=== PATIENT | male | born 2000 | race Two or more races ===

== ENCOUNTER 2025-01-01 00:56 | Inpatient (IN) | payer BC, SELFPAY ==
[2025-01-01] VITALS (28 sets, daily range): BP systolic 92–141; BP diastolic 46–85; PULSE 63–119; RESP 14–98; TEMP 36.2–37.1; O2SAT 96–100; BMI 23.6
--- NOTE | 2025-01-01 01:24 | XR_ITS ---
Examination: CT cervical spine without contrast 2-D sagittal reconstructions 2-D coronal reconstructions 3-D reconstructions. Exam date and time:January 01, 2025, 0212 hours INDICATIONS: Patient fell today with injury to the neck, neck pain CTDI:vol (mGy) 9.4 DLP: (mGycm) 241 Technique: Multiple 2 mm axial sections of the cervical spine have been obtained. The coronal and sagittal reconstructions have been obtained. 3-D reconstructions have been obtained. Low dose protocols were performed. One or more of the following dose reduction techniques were used; automated exposure control, adjustment of the mA and/or KV according to patient size, use of iterative reconstruction technique. Findings: Axial sections demonstrate intact base of the skull. C1 exhibit satisfactory relationship to the odontoid. No acute cervical vertebral body fracture seen. Alignment posterior spinous processes satisfactory. Impression: No acute cervical fracture.
--- NOTE | 2025-01-01 01:24 | XR_ITS ---
Examination: CT chest, without intravenous contrast. CT abdomen, without intravenous contrast. CT pelvis, without intravenous contrast. 2-D sagittal and coronal reconstructions. 3-D reconstructions. Date and time of exam:January 01 2025, 0218 hours INDICATIONS: Patient fell today with injury of the chest and abdomen, chest pain abdomen pain CTDI vol (mgy) 47 DLP (MGycm)968 Technique: Multiple CT images, 3.0 mm slice thickness, obtained chest, abdomen, pelvis, with the high-resolution 64 slice scanner.. Sagittal and coronal 2-D reconstructions are obtained. 3-D reconstructions Low dose protocols were performed. One or more of the following dose reduction techniques were used; automated exposure control, adjustment of the mA and/or KV according to patient size, use of iterative reconstruction technique. Findings: Thoracic aorta and pulmonary arteries intact No hemopericardium No pneumothorax pulmonary contusion or hemothorax The manubrium and the body of the sternum intact Thoracic lumbar sacral segments appear intact No acute rib fractures There is patient motion which obscures rib detail No liver or splenic or renal laceration Abdominal aorta is intact No free blood in the abdomen or pelvis Negative for pneumoperitoneum Normal appendix Urinary bladder is intact and Bones of the pelvis hips intact IMPRESSION: Thoracic aorta and pulmonary arteries are intact. No hemopericardium pneumothorax pulmonary contusion or hemothorax No abdominal parenchymal laceration Abdominal aorta intact No free blood in the abdomen or pelvis. Osseous structures are intact
--- NOTE | 2025-01-01 01:24 | XR_ITS ---
Examination: CT brain head without contrast. 2-D sagittal coronal reconstructions Date and time of exam:January 01, 2025 0215 hours INDICATIONS: Patient fell today with injury to the head, head pain CTDI: vol (mGy):14 DLP: (mGycm):1061 Technique: Multiple CT axial sections of the brain have been obtained, 5 mm slice thickness. Contrast has not been administered. 2-D sagittal, coronal reconstructions have been obtained Low dose protocols were performed. One or more of the following dose reduction techniques were used; automated exposure control, adjustment of the mA and/or KV according to patient size, use of iterative reconstruction technique. Findings: No significant ventricular enlargement. Intra-axial or extra-axial hemorrhage density is not seen. No mass effect or midline shift Basal cisterns are not remarkable. Fourth ventricle is midline. Cranial vault intact. Impression: Negative for acute hemorrhage, mass effect or midline shift
--- NOTE | 2025-01-01 01:24 | PD.EDALCOH ---
ED Alcohol RME/HPI General Chief Complaint: Altered Mental Status Stated Complaint: DRANK TOO MUCH ALCOHOL Time Seen by Provider: 01/01/25 01:22 Arrival date/time: 01/01/25 00:56 RME / HPI RME / HPI narrative: This section includes all my notes and documentations, including HPI, PE, and ED course. Alek Matos MD HPI: 24 y/o male BIB younger brother c/o alcohol intoxication and vomiting x approximately 3 hours. Patient rarely drinks, is athletic, and is otherwise very healthy. Patient was at a baby shower at his uncle's house where patient was pressured into drinking. Per brother, patient last texted him at 10 PM, about 3 hours ago when he sounded normal. Then by 11 PM when he picked him up, patient was incoherent. No other complaints. ROS: Can't obtain from the patient due to current clinical condition. Physical Exam: General: Obviously intoxicated. Actively vomiting. Eyes: Conjunctivae and lids clear. EOMI. PERRL. ENT: No signs of tenderness. Neck: Supple. No tenderness. Heart: RRR. Lungs: No respiratory distress. Good air movement. No rhonchi, wheezing, rales. Chest: No tenderness. Abdomen: Soft and nontender. Normal bowel sounds. No distension. No rebound or guarding. Skin: Warm and dry. Neuro: Cranial Nerves II-XII grossly intact. No peripheral motor deficits. Musculoskeletal: All major joints and bones are not tender with no limited ROM. I reviewed all diagnostic test results: My review of the C-Spine CT report is: NAD. My review of the Head/Brain CT report is: NAD. My review of the Chest/Abdomen/Pelvis CT report is: NAD. Blood tests and urine tests remarkable for alcohol 298.2, amylase 709, lipase 1133. At this point, diagnoses include: Pancreatitis, Alcohol intoxication, Intractable vomiting. Treatment here included: Zofran 4 mg, Ativan 2 mg, IVF. Significant improvement not noted. I discussed the case with our hospitalist. About the presentation and exam and diagnostics and treatments here. And need of further care in the hospital. Will accept the patient. Alek Matos MD Last drink: Just Prior to Arrival Related Data Previous Rx's ?Medication ?Instructions ?Recorded naproxen 500 mg tablet (Naprosyn) 500 mg PO BID PRN pain #30 tabs 01/11/21 tramadol 50 mg tablet 50 mg PO BID PRN pain #14 tabs 09/09/22 Held on 01/01/25. Instructions: Order Change Allergies Allergy/AdvReac Type Severity Reaction Status Date / Time milk Allergy Intermediate Abdominal Verified 01/01/25 01:04 Pain Review of Systems Review of Systems Systems Reviewed: All systems reviewed, normal except as documented Past Medical History Social History SMOKING STATUS: Never smoker ALCOHOL: Current ALCOHOL FREQUENCY: holidays/special occasions only ALCOHOL LAST INTAKE: Just Prior to Arrival ED Exam Narrative Physical exam: Refer to HPI Course Quality Measures none Orders Category Date Time Status COVID-19 Screening Questionnaire NOW Care 01/01/25 03:35 Completed Decision to Admit X1 Care 01/01/25 03:35 Completed Saline [Insert IV] NOW Care 01/01/25 01:23 Completed Straight [In and Out Catheter] X1 Care 01/01/25 01:[address] cervical spine wo con Stat Exams 01/01/25 01:[address] chest abdomen pelvis wo Stat Exams 01/01/25 01:[address] head/brain wo con Stat Exams 01/01/25 01:24 Completed Acetaminophen Stat Lab 01/01/25 01:34 Completed Alcohol, Blood Medical Stat Lab 01/01/25 01:34 Completed Ammonia Stat Lab 01/01/25 01:34 Completed Amylase Stat Lab 01/01/25 01:34 Completed Bilirubin,Direct Stat Lab 01/01/25 01:34 Completed CBC Stat Lab 01/01/25 01:34 Completed CK [Creatine Kinase] Stat Lab 01/01/25 01:34 Completed CMP [Comprehensive Metabolic Panel] Stat Lab 01/01/25 01:34 Completed Drug Screen,Urine Stat Lab 01/01/25 04:25 Completed Lipase Stat Lab 01/01/25 01:34 Completed Magnesium Stat Lab 01/01/25 01:34 Completed Salicylate Stat Lab 01/01/25 01:34 Completed UA, C/S IF [Urinalysis, C/S if Indicated] Stat Lab 01/01/25 04:25 Completed VBG [Venous Blood Gas] Stat Lab 01/01/25 01:34 Completed LORazepam [Ativan Inj] Med 01/01/25 01:23 Discontinued 2 mg IVP X1 ONE Ondansetron Inj [Zofran Inj] Med 01/01/25 01:23 Discontinued 4 mg IVP X1 ONE Sodium Chloride 0.9% 1000 ml [Ns] 1,000 ml Med 01/01/25 01:23 Discontinued IV 999 mls/hr Vital Signs Vital signs: Vital Signs Temperature 98.8 F 01/01/25 02:15 Pulse Rate 88 01/01/25 02:15 Respiratory Rate 17 01/01/25 02:15 Blood Pressure 132/82 H 01/01/25 02:15 Pulse Oximetry (%) 96 01/01/25 02:15 Oxygen Delivery Method Room Air 01/01/25 02:15 Discharge Plan Plan Patient Disposition: Admit Acute Care w/in Hospital Problem List Clinical Impression: Pancreatitis, Alcohol intoxication, Intractable vomiting Alcohol MDM Narrative MDM Narrative: Scribe Attestation: I, Michelle Villarreal, am scribing for and in the presence of Dr. Matos. Provider Notation: Although this document has been carefully reviewed, there may still be some phonetic and other typographical errors.? These errors are purely grammatical due to imperfections in the software program and should not be construed in any way to? compromise the substance of the patient's medical care during this visit. 24 y/o male BIB younger brother c/o alcohol intoxication and vomiting x approximately 3 hours. Patient rarely drinks, is athletic, and is otherwise very healthy. Patient was at a baby shower at his uncle's house where patient was pressured into drinking. Per brother, patient last texted him at 10 PM, then by 11 PM when he picked him up patient was incoherent. No other complaints. Patient data External records reviewed:: [facility] previous records (Reviewed prior ED records from 09/09/22. Patient was seen for Muscle strain.) Clinical information provided by:: family (Brother) Social determinants that could affect healthcare access:: alcohol use Patient has the following chronic illnesses:: None reported How is presenting disease/condition affected by chronic disease/condition?: no chronic disease Evaluation data The following diagnostics were reviewed and interpreted by me:: lab results and radiology exam(s) Lab and/or radiology exams considered but not ordered:: None Interpretation Summary: I reviewed all diagnostic test results: My review of the C-Spine CT report is: NAD. My review of the Head/Brain CT report is: NAD. My review of the Chest/Abdomen/Pelvis CT report is: NAD. Blood tests and urine tests remarkable for alcohol 298.2, amylase 709, lipase 1133. Medications / Prescriptions Medications or Prescriptions considered but not ordered:: None Medication administrations:: Medication Administration History Acetaminophen (Acetaminophen 325 Mg Tablet) 650 mg PO Q6H PRN PRN Reason: Fever >99.5 Stop: 01/31/25 04:39 Acetaminophen (Acetaminophen 500 Mg Tablet) 1,000 mg PO Q6H PRN PRN Reason: PAIN SCALE 1-3 (mild Stop: 01/31/25 04:39 Lactated Ringer's (Lactated Ringers) 1,000 mls @ 200 mls/hr IV .Q5H [facility] Stop: 01/02/25 10:22 Last Admin: 01/01/25 19:35 Dose: 200 mls/hr Documented By: Infusion: 01/01/25 19:35 Dose: Infused Documented By: Admin: 01/01/25 15:48 Dose: 200 mls/hr Documented By: Infusion: 01/01/25 15:48 Dose: Infused Documented By: Admin: 01/01/25 11:39 Dose: 200 mls/hr Documented By: NATALIA Morphine Sulfate (Morphine Sulf Inj 10 Mg/Ml Vial) 2 mg IVP Q4HR PRN PRN Reason: PAIN SCALE 4-10(Mod-Sev Stop: 01/06/25 04:39 Ondansetron HCl (Ondansetron Inj 2 Mg/Ml Inj 2 Ml) 4 mg IVP Q6H PRN; Protocol PRN Reason: NAUSEA OR VOMITING Stop: 01/31/25 04:39 Last Admin: 01/01/25 11:45 Dose: 4 mg Documented By: NATALIA Pantoprazole Sodium (Pantoprazole Inj 40 Mg Vial) 40 mg IVP QDAY MILES Stop: 01/31/25 08:59 Last Admin: 01/01/25 09:21 Dose: 40 mg Documented By: PP Discontinued Medications Acetaminophen (Acetaminophen 325 Mg Tablet) 1,000 mg PO Q6H PRN PRN Reason: PAIN SCALE 1-3 (mild Stop: 01/31/25 04:39 Last Admin: 01/01/25 11:43 Dose: 1,000 mg Documented By: PP Sodium Chloride (Ns) 1,000 mls @ 999 mls/hr IV .Q1H1M ONE Stop: 01/01/25 02:23 Last Infusion: 01/01/25 02:26 Dose: Infused Documented By: Admin: 01/01/25 01:46 Dose: 999 mls/hr Documented By: CG Lactated Ringer's (Lactated Ringers) 1,000 mls @ 120 mls/hr IV .Q8H20M MILES Stop: 01/31/25 04:44 Last Admin: 01/01/25 05:18 Dose: 120 mls/hr Documented By: CG Lorazepam (Lorazepam 2 Mg/Ml Vial) 2 mg IVP X1 ONE Stop: 01/01/25 01:24 Last Admin: 01/01/25 01:45 Dose: 2 mg Documented By: CG Morphine Sulfate (Morphine Sulf Inj 10 Mg/Ml Vial) 2 mg IVP Q6H PRN PRN Reason: PAIN SCALE 4-10(Mod-Sev Stop: 01/06/25 04:39 Morphine Sulfate (Morphine Sulf Inj 10 Mg/Ml Vial) 2 mg IVP Q4HR PRN PRN Reason: PAIN SCALE 4-10(Mod-Sev Stop: 01/06/25 04:39 Ondansetron HCl (Ondansetron Inj 2 Mg/Ml Inj 2 Ml) 4 mg IVP X1 ONE; Protocol Stop: 01/01/25 01:24 Last Admin: 01/01/25 01:45 Dose: 4 mg Documented By: RICH Treatment here from me included: Zofran 4 mg, Ativan 2 mg, IVF. Consultations Consultation(s) initiated? (list below): No Diagnosis Differential diagnosis alcohol: alcohol withdrawal delirium, hypomagnesemia, alcohol intoxication, alcohol ketoacidosis, alcohol withdrawal syndrome and alcohol withdrawal seizure Most likely diagnosis given after review of the tests above:: Pancreatitis, Alcohol intoxication, Intractable vomiting. Admission Indicated Admission indicated?: indicated Explain why admission is indicated or not indicated:: Pancreatitis, Alcohol intoxication, Intractable vomiting. Admission Request Was there a request for admission?: Yes Admission Attestation Admission request attestation: Discussed case with Hospitalist service regarding admission. Discussed patients ED course, exam findings, labs, and radiology results. The Hospitalist [agrees] to accept the patient for admission. Disposition Plan Disposition Plan: Admit
[2025-01-01 01:39] LABS: Base Excess, Venous -1 (-3-3); O2 Saturation, Venous 70 % (96-97); PCO2, Venous 45 mmHg (36-56); PO2, Venous 41 mmHg (15-58); pH, Venous 7.36 (7.33-7.66)
[2025-01-01 01:40] LABS: Basophils # (Auto) 0.1 Thou/mm3 (0.0-0.2); Basophils % (Auto) 1 % (0-2.5); Eosinophils % (Auto) 0 % (0-10); Hematocrit 42.6 % (41.0-53.0); Hemoglobin 14.6 g/dL (13.5-16.0); Immature Granulocytes % (Auto) 1 % (0-0); Immature Granulocytes Auto 0.14 Thou/mm3 (0.00-0.00); Lymphocytes # (Auto) 4.5 Thou/mm3 (1.0-4.8); Lymphocytes % (Auto) 32 % (10-50); Mean Corpuscular HGB Conc 34.3 g/dl (31.0-37.0); Mean Corpuscular Hemoglobin 26.9 pg (25.0-35.0); Mean Corpuscular Volume 79 fL (80-100); Monocytes # (Auto) 0.7 Thou/mm3 (0.0-0.8); Monocytes % (Auto) 5 % (0-12); Neutrophils # (Auto) 8.4 Thou/mm3 (1.8-7.7); Neutrophils % (Auto) 61 % (37-80); Nucleated Red Blood Cell % 0 /100 WBC (0); Platelet Count 286 Thou/mm3 (140-440); RDW Standard Deviation 38.9 fL (35.1-43.9); Red Blood Count 5.42 Miln/mm3 (4.50-5.90); White Blood Count 13.8 Thou/mm3 (3.8-10.6)
[2025-01-01] MEDS: ONDANSETRON INJ 2 MG/ML INJ 2 ML 4 MG IVP ×2 (01:45→11:45)
[2025-01-01] MEDS: LORazepam 2 MG/ML VIAL IVP (01:45)
[2025-01-01] MEDS: SODIUM CHLORIDE 0.9% 1000 ML 1,000 ML 999 ML IV (01:46)
[2025-01-01 02:00] LABS: Ammonia < 10 uMol/L (11-32)
[2025-01-01 02:23] LABS: Acetaminophen < 2.0 mcg/mL (10.0-20.0); Alanine Aminotransferase 25 U/L (10-49); Albumin, Serum 4.6 gm/dL (3.5-5.0); Albumin/Globulin Ratio 1.9 (1.2-2.2); Alcohol, Blood Medical 298.2 mg/dL (0-10.0); Alkaline Phosphatase 97 U/L (46-116); Amylase 709 U/L (30-118); Anion Gap 11 (7-16); Aspartate Amino Transferase 21 U/L (0-34); BUN/Creatinine Ratio 16 Ratio (12-20); Bilirubin,Direct 0.1 mg/dL (0.0-0.3); Bilirubin,Total 0.4 mg/dL (0.3-1.2); Blood Urea Nitrogen 14 mg/dL (9-23); Calcium 8.8 mg/dL (8.3-10.6); Calcium (Corrected) 8.8 mg/dL (8.5-10.1); Carbon Dioxide 25.7 mMol/L (20.0-31.0); Chloride 101 mMol/L (98-107); Creatine Kinase 130 U/L (34-171); Creatinine (Component) 0.9 mg/dL (0.6-1.3); Estimated Creatinine Clearance 128.7 mL/min (>60); Globulin 2.4 gm/dL (2.3-3.5); Glucose 131 mg/dL (74-106); Lipase 1133 U/L (12-53); Magnesium 2.3 mg/dL (1.6-2.6); Osmolality,Calculated 278 (275-295); Potassium 4.1 mMol/L (3.4-5.1); Salicylate < 3.0 mg/dL; Sodium 138 mMol/L (136-145); eGFR > 60 See Note
--- NOTE | 2025-01-01 02:46 | PRELIM_ITS ---
CT scan of the cervical spine without intravenous contrast (axial sections with sagittal and coronal reformats) January 01, 2025 0215 hours Clinical History: Trauma Findings: There is no fracture or subluxation. Straightening of the cervical spine is identified, which may be related to muscle spasm.The prevertebral soft tissues are unremarkable. Impression: No evidence of fracture or subluxation. Report Electronically Signed By: Lawson Fay 01/01/2025 2:45:27 AM [EST]
--- NOTE | 2025-01-01 02:48 | PRELIM_ITS ---
CT scan of the head without intravenous contrast (axial sections with sagittal and coronal reformats). January 01, 2025 0215 hours Clinical History: AMS Findings: No evidence of intracranial hemorrhage, mass effect or midline shift. The ventricles and CSF spaces are unremarkable. There is a small osteoma in the right parietal scalp. There is mild mucosal thickening of the left sphenoid sinus.The mastoid air cells and the other visualized paranasal sinuses are cl ear. Impression: No evidence of intracranial hemorrhage, mass effect or midline shift. Report Electronically Signed By: Lawson Fay 01/01/2025 2:48:15 AM [EST]
--- NOTE | 2025-01-01 03:29 | PRELIM_ITS ---
CT scan of the chest, abdomen and pelvis without intravenous contrast (axial sections with sagittal and coronal reformats) January 01, 2025 0218 hours Clinical History: Fall Findings: The lungs are clear. There is no pleural effusion or pneumothorax. The aorta is unremarkable on this noncontrast study. There is no mediastinal collection. There is no pericardial effusion. The liver, gallbladder, spleen, pancreas, adrenals and kidneys are unremarkable on this noncontrast study. The bowel is unremarkable. A moderate amount of fecal material is present in the colon. The urinary bladder is unremarkable. There is no free fluid or free air. No fracture is identified. Impression: No visceral or bony injury to the chest, abdomen or pelvis. Report Electronically Signed By: Lawson Fay 01/01/2025 3:28:54 AM [EST]
[2025-01-01 04:31] LABS: Collection Type, Urine Clean Catch; Squamous Epithelial Cell,Urine 0 /hpf (0-5)
[2025-01-01 04:39] LABS: Amorphous Crystals,Urine Present (Absent); Bilirubin,Urine Negative (Negative); Blood,Urine Negative (Negative); Clarity,Urine Turbid (Clear/Hazy); Color,Urine Lt-Yellow (Lt Yel-Yel); Culture Indicated,Urine Not Indicated; Glucose, Urine Negative (Negative); Ketones,Urine Negative (Negative); Leukocyte Esterase,Urine Negative (Negative); Nitrite,Urine Negative (Negative); Protein,Urine Trace (Neg - Trace); RBC,Urine 1 /hpf (0-3); Specific Gravity,Urine 1.027 (1.001-1.035); Transitional Epi Cells,Urine 17 /hpf (0-5); Urobilinogen,Urine Negative mg/dL (0.0-1.0); WBC,Urine 4 /hpf (0-5)
--- NOTE | 2025-01-01 04:48 | ESHP_ITS ---
<Statement entered by Anton Barbour MD - 01/01/25 07:10> I Anton Barbour MD reviewed the note and agree with the resident's assessment & plan with exceptions as below. I have personally reviewed labs, imaging, home meds/prior records, examined the patient, formulated and discussed management plan with the IM team. A 24-year-old M with intermittent binge drinking brought to ED with abdominal pain, nausea and vomiting and was altered on presentation. Patient noted to be intoxicated with EtOH with lipase significantly elevated to 1133 consistent with acute pancreatitis. Continue IV fluid resuscitation, clear liquid diet, Protonix IV daily, advance diet as tolerated. Extensively counseled regarding substance use. Documentation for date of: 01/01/25 HPI History of Present Illness Chief complaint: AMS History of present illness: History severely limited as patient is intoxicated lethargic 24-year-old male with unknown past medical history who was brought to the ED due to vomiting for the past 3 hours. Per chart review patient is not a daily drinker however went to a family event apparently had a lot to drink family found him incoherent with vomiting and nausea and lethargic and was brought here to the ER. Review of systems limited as patient is lethargic. In the ED patient had negative head CT, CT chest abdomen pelvis was negative for any acute pathology, elevated amylase and lipase. On my initial evaluation patient had a GCS of 7 (E: 2, V: 2, M: 3) there was concern for airway protection however after 3 more episodes of vomiting in the ER, patient is GCS improved to 10-11. When asked about any other substances the patient might of taken during that night patient states he does not remember and went back to sleep. ED course: ED vitals: BP 132/82, HR 88, saturating 96% on room air ED labs: Leukocytosis, CHEM panel unremarkable, ammonia less than 10, amylase 709, lipase 1133, UA negative, alcohol level is 298.2, head CT negative, CT chest abdomen pelvis negative PMHx: As above SX Hx: Unknown Social Hx: Unknown FH X: Unknown Review of Systems Review of Systems ROS Unobtainable: unobtainable due to mental status and unobtainable due to medical condition Exam Vital Signs Temp Pulse Resp BP Pulse Ox O2 Del Method 98.8 F 70 14 105/60 100 Room Air 01/01/25 02:15 01/01/25 03:45 01/01/25 03:45 01/01/25 03:45 01/01/25 03:45 01/01/25 02:15 Narrative Exam Physical Exam GENERAL: NAD, GCS:11 HEENT: Dry mucosa. Eyes open, symmetrical, & clear CARDIO: Heart RRR, no obvious murmurs PULM: No noted coughing/dyspnea CTA B/L, no R/W/R GI: Abdomen soft, nondistended, epigastric pain on palpation. BSx4 SKIN/MSK/EXT: No wounds/rashes/edema/amputations, no pain on palpation. Pedal pulses present B/L Results: Labs 01/01/25 05:30 01/01/25 01:34 Labs: Short CBC 01/01/25 Range/Units 01:34 WBC 13.8 H (3.8-10.6) Thou/mm3 Hgb 14.6 (13.5-16.0) g/dL Hct 42.6 (41.0-53.0) % Plt Count 286 (140-440) Thou/mm3 BMP 01/01/25 01:34 Sodium 138 Potassium 4.1 Chloride 101 Carbon Dioxide 25.7 BUN 14 Creatinine 0.9 Glucose 131 H Calcium 8.8 Cardiac Enzymes 01/01/25 Range/Units 01:34 Total Creatine Kinase 130 (34-171) U/L Liver Function 01/01/25 Range/Units 01:34 Total Bilirubin 0.4 (0.3-1.2) mg/dL Direct Bilirubin 0.1 (0.0-0.3) mg/dL AST 21 (0-34) U/L ALT 25 (10-49) U/L Alkaline Phosphatase 97 (46-116) U/L Albumin 4.6 (3.5-5.0) gm/dL Urine 01/01/25 Range/Units 04:25 Urine Color Lt-Yellow (Lt Yel-Yel) Urine Clarity Turbid A (Clear/Hazy) Urine pH 6.0 (5.0-7.0) Ur Specific [place] 1.027 (1.001-1.035) Urine Protein Trace (Neg - Trace) Urine Glucose (UA) Negative (Negative) ABG Interpretation ABG results: 01/01/25 01:34 VBG pH 7.36 VBG pCO2 45 VBG pO2 41 VBG Base Excess -1 Quality Measures Quality Measures none Medications Home Medications and Allergies Allergies Allergy/AdvReac Type Severity Reaction Status Date / Time milk Allergy Intermediate Abdominal Verified 01/01/25 01:04 Pain Visit Medications Acetaminophen (Acetaminophen 325 Mg Tablet) 650 mg PO Q6H PRN PRN Reason: Fever >99.5 Stop: 01/31/25 04:39 Acetaminophen (Acetaminophen 325 Mg Tablet) 1,000 mg PO Q6H PRN PRN Reason: PAIN SCALE 1-3 (mild Stop: 01/31/25 04:39 Lactated Ringer's (Lactated Ringers) 1,000 mls @ 120 mls/hr IV .Q8H20M MILES Stop: 01/31/25 04:44 Morphine Sulfate (Morphine Sulf Inj 10 Mg/Ml Vial) 2 mg IVP Q6H PRN PRN Reason: PAIN SCALE 4-10(Mod-Sev Stop: 01/06/25 04:39 Ondansetron HCl (Ondansetron Inj 2 Mg/Ml Inj 2 Ml) 4 mg IVP Q6H PRN; Protocol PRN Reason: NAUSEA OR VOMITING Stop: 01/31/25 04:39 Pantoprazole Sodium (Pantoprazole Inj 40 Mg Vial) 40 mg IVP QDAY MILES Stop: 01/31/25 08:59 Discontinued Medications Sodium Chloride (Ns) 1,000 mls @ 999 mls/hr IV .Q1H1M ONE Stop: 01/01/25 02:23 Last Infusion: 01/01/25 02:26 Dose: Infused Lorazepam (Lorazepam 2 Mg/Ml Vial) 2 mg IVP X1 ONE Stop: 01/01/25 01:24 Last Admin: 01/01/25 01:45 Dose: 2 mg Ondansetron HCl (Ondansetron Inj 2 Mg/Ml Inj 2 Ml) 4 mg IVP X1 ONE; Protocol Stop: 01/01/25 01:24 Last Admin: 01/01/25 01:45 Dose: 4 mg Assessment & Plan Plan 24-year-old male with unknown past medical history who presented to the ED due to nausea vomiting abdominal pain after alcohol intoxication. Patient will be admitted for acute pancreatitis. 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 Aggressive IV hydration ? Pain control ? N.p.o. can start clear liquid diet after patient's vomiting resolves ? Zofran for nausea and vomiting ? Follow-up U-Tox ? Follow-up triglycerides Health Maintenance: Disposition: Med telemetry Fluids: LR Feeding: N.p.o. Thrombo prophylaxis: SCDs Gastric Ulcer prophylaxis: Pantoprazole CODE STATUS: Full code Case discussed with my attending Dr. Km Silva MD PGY-1 Disclaimer: Despite multiple revisions, due to the dictation software being used, the document bellow may not be free of grammatical errors including phonetic/typographic errors. However, this does not deter from our commitment to providing health care in the patient's best interest in mind.
[2025-01-01 05:04] LABS: Amphetamine/Methamp Scrn,U Negative (Negative); Barbiturate Screen,Urine Negative (Negative); Benzodiazepines Screen,Urine Negative (Negative); Benzoylecgonine Screen, Ur Negative (Negative); Fentanyl Screen,Urine Negative (Negative); Opiate Screen,Urine Negative (Negative); THC Screen,Urine Positive (Negative)
[2025-01-01] MEDS: RINGERS LACTATED 1000 ML 1,000 ML 120 ML IV (05:18)
[2025-01-01 05:45] LABS: Basophils % (Auto) 0 % (0-2.5); Eosinophils % (Auto) 0 % (0-10); Hematocrit 41.8 % (41.0-53.0); Hemoglobin 14.1 g/dL (13.5-16.0); Immature Granulocytes % (Auto) 1 % (0-0); Immature Granulocytes Auto 0.13 Thou/mm3 (0.00-0.00); Lymphocytes # (Auto) 1.4 Thou/mm3 (1.0-4.8); Lymphocytes % (Auto) 9 % (10-50); Mean Corpuscular HGB Conc 33.7 g/dl (31.0-37.0); Mean Corpuscular Hemoglobin 27.6 pg (25.0-35.0); Mean Corpuscular Volume 82 fL (80-100); Monocytes # (Auto) 0.3 Thou/mm3 (0.0-0.8); Monocytes % (Auto) 2 % (0-12); Neutrophils # (Auto) 13.8 Thou/mm3 (1.8-7.7); Neutrophils % (Auto) 88 % (37-80); Nucleated Red Blood Cell % 0 /100 WBC (0); Platelet Count 241 Thou/mm3 (140-440); RDW Standard Deviation 40.3 fL (35.1-43.9); Red Blood Count 5.11 Miln/mm3 (4.50-5.90); White Blood Count 15.6 Thou/mm3 (3.8-10.6)
[2025-01-01 06:15] LABS: Alanine Aminotransferase 21 U/L (10-49); Albumin, Serum 4.3 gm/dL (3.5-5.0); Albumin/Globulin Ratio 1.9 (1.2-2.2); Alkaline Phosphatase 89 U/L (46-116); Anion Gap 10 (7-16); Aspartate Amino Transferase 21 U/L (0-34); BUN/Creatinine Ratio 11 Ratio (12-20); Bilirubin,Total 0.5 mg/dL (0.3-1.2); Blood Urea Nitrogen 9 mg/dL (9-23); Calcium 8.5 mg/dL (8.3-10.6); Calcium (Corrected) 8.5 mg/dL (8.5-10.1); Carbon Dioxide 25.9 mMol/L (20.0-31.0); Cardiac Risk Estimate 2.1 RATIO (4.0-6.7); Chloride 103 mMol/L (98-107); Cholesterol 127 mg/dL (132-200); Creatinine (Component) 0.8 mg/dL (0.6-1.3); Estimated Creatinine Clearance 144.8 mL/min (>60); Globulin 2.3 gm/dL (2.3-3.5); Glucose 123 mg/dL (74-106); HDL Cholesterol 60 mg/dL (40-60); LDL Cholesterol,Calculated 56 mg/dL (0-130); Magnesium 2.1 mg/dL (1.6-2.6); Osmolality,Calculated 277 (275-295); Potassium 4.4 mMol/L (3.4-5.1); Sodium 139 mMol/L (136-145); Total Protein 6.6 gm/dL (5.7-8.2); Triglycerides 55 mg/dL (30-150); eGFR > 60 See Note
[2025-01-01] MEDS: PANTOPRAZOLE INJ 40 MG VIAL IVP (09:21)
[2025-01-01] MEDS: RINGERS LACTATED 1000 ML 1,000 ML 200 ML IV ×3 (11:39→19:35)
[2025-01-01] MEDS: ACETAMINOPHEN 325 MG TABLET 1000 MG PO (11:43)
--- NOTE | 2025-01-01 11:52 | PC.NURSE ---
Report given to Antonino RN
--- NOTE | 2025-01-01 15:15 | PC.SS ---
Donald Hughes is 24 year old male admitted to [facility] for Pancreatitis. SS conducted bedside contact with the patient to complete initial assessment and to discuss discharge planning.? SW used all precautionary measures to complete initial. Role and reason for the contact was explained to Donald. Pt is alert and oriented times 4. Pt gave verbal authorization for Alejandra Willett, to be present while assessment was conducted. Patient confirmed demographic information and recently moved, current address is [address] [place] [id number]. Patient identifies Alejandra Willett nikaart?, as his surrogate decision maker. Pt states prior to hospitalization he is able to complete all ADL?s independently. Pt does not use DME nor O2. Pt confirmed no history of mental health or substance abuse. Pts PCP is [facility]. Unsure Pharmacy of choice. [facility] discussed, pt not receptive. Pt is not open to HH. Pt confirmed that his alcohol use was a one time thing and he has not intention of getting inebriated in future. Pt declined community resources. Discharge options discussed and the pt will return home. Family will provide transportation upon DC. No further intervention required at this time, forensic social worker would be available to address any further concerns. DC Plan: Home Contact: [place]?, Address: Confirmed on face sheet PCP: [facility]
--- NOTE | 2025-01-01 15:49 | ESPR_ITS ---
Documentation for date of: 01/01/25 Subjective Subjective Interval history: Patient is seen and examined at bedside Patient is admitted overnight in view of alcohol intoxication and acute pancreatitis Patient endorsed that he is feeling hungry and does not have abdominal pain at the time of examination Vitals are stable. On physical examination, there is no tenderness in the epigastric area Labs showed leukocytosis 15.6 Increased IV fluids to 200 mL/h Started on clear liquid diet and will advance as tolerated. Exam Vital Signs Temp Pulse Resp BP Pulse Ox O2 Del Method 98.2 F 75 18 127/78 97 Room Air 01/01/25 12:00 01/01/25 13:25 01/01/25 12:00 01/01/25 12:00 01/01/25 12:00 01/01/25 12:00 Narrative Exam General: Awake. HEENT: Normocephalic, atraumatic, mucous membranes moist. Heart: Regular rate and rhythm, no murmurs. Lungs: Clear to auscultation with no wheezing or crackles. Abdomen: Soft, nondistended, nontender, positive bowel sounds. ?No guarding or rebound tenderness. Neurologic: Alert and oriented x3, no gross neurological deficit, and patient able to move all 4 extremities. Extremities: No edema. Skin: No rash or ecchymoses. Objective Labs 01/02/25 04:30 01/02/25 04:30 Labs: Laboratory Results - last 24 hr 01/01/25 01/01/25 01/01/25 01:34 04:25 05:30 WBC 13.8 H 15.6 H RBC 5.42 5.11 Hgb 14.6 14.1 Hct 42.6 41.8 MCV 79 L 82 MCH 26.9 27.6 MCHC 34.3 33.7 RDW Std Deviation 38.9 40.3 Plt Count 286 241 D Neut % (Auto) 61 88 H Lymph % (Auto) 32 9 L Clinch % (Auto) 5 2 Eos % (Auto) 0 0 Baso % (Auto) 1 0 Neut # (Auto) 8.4 H 13.8 H Lymph # (Auto) 4.5 1.4 Clinch # (Auto) 0.7 0.3 Eos # (Auto) 0.0 0.0 Baso # (Auto) 0.1 0.0 Immature Gran # (Auto) 0.14 H 0.13 H Absolute Nucleated RBC 0.00 0.00 Immature Gran % 1 H 1 H Nucleated RBC % 0 0 VBG pH 7.36 VBG pCO2 45 VBG pO2 41 VBG O2 Sat (Cele) 70 L VBG Base Excess -1 Sodium 138 139 Potassium 4.1 4.4 Chloride 101 103 Carbon Dioxide 25.7 25.9 Anion Gap 11 10 BUN 14 9 Creatinine 0.9 0.8 Estim Creat Clear Calc 128.7 144.8 eGFR > 60 > 60 BUN/Creatinine Ratio 16 11 L Glucose 131 H 123 H Calculated Osmolality 278 277 Calcium 8.8 8.5 Corrected Calcium 8.8 8.5 Magnesium 2.3 2.1 Total Bilirubin 0.4 0.5 Direct Bilirubin 0.1 AST 21 21 ALT 25 21 Alkaline Phosphatase 97 89 Ammonia < 10 L Total Creatine Kinase 130 Total Protein 7.0 6.6 Albumin 4.6 4.3 Globulin 2.4 2.3 Albumin/Globulin Ratio 1.9 1.9 Triglycerides 55 Cholesterol 127 L LDL Cholesterol, Calc 56 HDL Cholesterol 60 Cholesterol/HDL Ratio 2.1 L Amylase 709 H* Lipase 1133 H* Ur Collection Type Clean Catch Urine Color Lt-Yellow Urine Clarity Turbid A Urine pH 6.0 Ur Specific [place] 1.027 Urine Protein Trace Urine Glucose (UA) Negative Urine Ketones Negative Urine Blood Negative Urine Nitrite Negative Urine Bilirubin Negative Urine Urobilinogen (Auto) Negative Ur Leukocyte Esterase Negative Urine RBC 1 Urine WBC 4 Ur Squamous Epith Cells 0 Ur Transition Epith Cell 17 H Amorphous Crystals Present A Urine Bacteria None Ur Culture Indicated? Not Indicated Salicylates < 3.0 Urine Opiates Screen Negative Urine Fentanyl Screen Negative Acetaminophen < 2.0 L Ur Barbiturates Screen Negative U Amphetamin/Meth Scrn Negative U Benzodiazepines Scrn Negative U Cocaine Metab Screen Negative U Marijuana (THC) Screen Positive A Ethyl Alcohol 298.2 H ABG Interpretation ABG results: 01/01/25 01:34 VBG pH 7.36 VBG pCO2 45 VBG pO2 41 VBG Base Excess -1 Quality Measures Quality Measures none Assessment & Plan Assessment Current Active Medications: Generic Name Dose Route Start Last Admin Trade Name Freq PRN Reason Stop Dose Admin Acetaminophen 650 mg 01/01/25 04:40 Acetaminophen 325 Mg Tablet PO 01/31/25 04:39 Q6H PRN Fever >99.5 Acetaminophen 1,000 mg 01/01/25 04:40 01/01/25 11:43 Acetaminophen 325 Mg Tablet PO 01/31/25 04:39 1,000 mg Q6H PRN Administration PAIN SCALE 1-3 (mild Lactated Ringer's 1,000 mls @ 200 mls/hr 01/01/25 10:23 01/01/25 15:48 Lactated Ringers IV 01/02/25 10:22 200 mls/hr .Q5H MILES Administration Morphine Sulfate 2 mg 01/01/25 04:40 Morphine Sulf Inj 10 Mg/Ml Vial IVP 01/06/25 04:39 Q6H PRN PAIN SCALE 4-10(Mod-Sev Ondansetron HCl 4 mg 01/01/25 04:40 01/01/25 11:45 Ondansetron Inj 2 Mg/Ml Inj 2 Ml IVP 01/31/25 04:39 4 mg Q6H PRN Administration NAUSEA OR VOMITING Protocol Pantoprazole Sodium 40 mg 01/01/25 09:00 01/01/25 09:21 Pantoprazole Inj 40 Mg Vial IVP 01/31/25 08:59 40 mg QDAY MILES Administration Plan 24-year-old male with unknown past medical history who presented to the ED due to nausea vomiting abdominal pain after alcohol intoxication. Patient will be admitted for acute pancreatitis. #Acute pancreatitis # 2/2 Acute Alcohol intoxication Likely secondary to acute alcohol intoxication 2/3 symptoms for pancreatitis elevated lipase, abdominal pain CT negative for pancreatitis Patient apparently not a chronic alcoholic Triglycerides and calcium is within normal limits Plan ? Aggressive IV hydration - LR @ 200ml/hr ? Pain control - Morphine and tylenol as needed for pain ? Started on clear liquid diet and will advance as tolerated ? Zofran for nausea and vomiting Health Maintenance: Disposition: Med telemetry Fluids: LR Feeding: Clear liquid and Advance as tolerated Thrombo prophylaxis: SCDs Gastric Ulcer prophylaxis: Pantoprazole CODE STATUS: Full code Patient plan of care was discussed with the attending physician, Dr. Flaco Caruso, PGY1 Attending Provider Attestation/Addendum I, Flower Sam DO, attest that I was physically present for the ahumada portions of the service and evaluated the patient with the resident and I reviewed and discussed the case with the resident and agree with the resident's findings and plans of care as documented above Patient seen and evaluated this AM. Patient states that he was binge drinking that resulted in epigastric pain, nausea and vomiting. He denies frequent consumption of alcohol. He states he drank a buzzball, don lolly and twisted teas at a baby shower. His partner at bedside also confirmed that patient does not drink daily. He denies history of pancreatitis in the past. He continues to have some mild epigastric pain. Continue with IV fluid hydration. If patient remains stable, anticipate DC within next 24h.
--- NOTE | 2025-01-01 16:39 | PC.SS ---
ss spoke to Zora, registration, added POC Alejandra Willett, [address], [place], [place] [phone]
[2025-01-02] VITALS (7 sets, daily range): BP systolic 100–127; BP diastolic 57–67; PULSE 61–93; RESP 18–100; TEMP 36.3–37.1; O2SAT 97–99
[2025-01-02] MEDS: RINGERS LACTATED 1000 ML 1,000 ML 200 ML IV ×2 (01:07→06:33)
[2025-01-02 05:57] LABS: Basophils % (Auto) 0 % (0-2.5); Eosinophils # (Auto) 0.1 Thou/mm3 (0.0-0.5); Eosinophils % (Auto) 1 % (0-10); Hematocrit 39.3 % (41.0-53.0); Hemoglobin 13.3 g/dL (13.5-16.0); Immature Granulocytes % (Auto) 0 % (0-0); Immature Granulocytes Auto 0.03 Thou/mm3 (0.00-0.00); Lymphocytes % (Auto) 35 % (10-50); Mean Corpuscular HGB Conc 33.8 g/dl (31.0-37.0); Mean Corpuscular Hemoglobin 27.4 pg (25.0-35.0); Mean Corpuscular Volume 81 fL (80-100); Monocytes # (Auto) 0.8 Thou/mm3 (0.0-0.8); Monocytes % (Auto) 9 % (0-12); Neutrophils # (Auto) 4.7 Thou/mm3 (1.8-7.7); Neutrophils % (Auto) 55 % (37-80); Nucleated Red Blood Cell % 0 /100 WBC (0); Platelet Count 239 Thou/mm3 (140-440); RDW Standard Deviation 41.6 fL (35.1-43.9); Red Blood Count 4.86 Miln/mm3 (4.50-5.90); White Blood Count 8.7 Thou/mm3 (3.8-10.6)
[2025-01-02 06:22] LABS: Alanine Aminotransferase 16 U/L (10-49); Albumin, Serum 3.9 gm/dL (3.5-5.0); Albumin/Globulin Ratio 1.9 (1.2-2.2); Alkaline Phosphatase 81 U/L (46-116); Anion Gap 7 (7-16); Aspartate Amino Transferase 14 U/L (0-34); BUN/Creatinine Ratio 8 Ratio (12-20); Blood Urea Nitrogen 6 mg/dL (9-23); Calcium 9.7 mg/dL (8.3-10.6); Calcium (Corrected) 9.8 mg/dL (8.5-10.1); Carbon Dioxide 27.8 mMol/L (20.0-31.0); Chloride 105 mMol/L (98-107); Creatinine (Component) 0.8 mg/dL (0.6-1.3); Estimated Creatinine Clearance 144.8 mL/min (>60); Globulin 2.1 gm/dL (2.3-3.5); Glucose 87 mg/dL (74-106); Magnesium 1.9 mg/dL (1.6-2.6); Osmolality,Calculated 276 (275-295); Phosphorous 3.3 mg/dL (2.4-5.1); Potassium 4.2 mMol/L (3.4-5.1); Sodium 140 mMol/L (136-145); eGFR > 60 See Note
[2025-01-02] MEDS: PANTOPRAZOLE INJ 40 MG VIAL IVP (08:57)
--- NOTE | 2025-01-02 11:26 | PD.RESPRO ---
Documentation for date of: 01/02/25 Exam Vital Signs Temp Pulse Resp BP Pulse Ox O2 Del Method 97.9 F 93 19 127/67 98 Room Air 01/02/25 08:00 01/02/25 09:04 01/02/25 08:00 01/02/25 08:00 01/02/25 08:00 01/02/25 08:00 Objective Labs 01/02/25 04:30 01/02/25 04:30 Labs: Laboratory Results - last 24 hr 01/02/25 04:30 WBC 8.7 D RBC 4.86 Hgb 13.3 L Hct 39.3 L MCV 81 MCH 27.4 MCHC 33.8 RDW Std Deviation 41.6 Plt Count 239 Neut % (Auto) 55 Lymph % (Auto) 35 Eddy % (Auto) 9 Eos % (Auto) 1 Baso % (Auto) 0 Neut # (Auto) 4.7 Lymph # (Auto) 3.0 Eddy # (Auto) 0.8 Eos # (Auto) 0.1 Baso # (Auto) 0.0 Immature Gran # (Auto) 0.03 H Absolute Nucleated RBC 0.00 Immature Gran % 0 Nucleated RBC % 0 Sodium 140 Potassium 4.2 Chloride 105 Carbon Dioxide 27.8 Anion Gap 7 BUN 6 L Creatinine 0.8 Estim Creat Clear Calc 144.8 eGFR > 60 BUN/Creatinine Ratio 8 L Glucose 87 Calculated Osmolality 276 Calcium 9.7 Corrected Calcium 9.8 Phosphorus 3.3 Magnesium 1.9 Total Bilirubin 1.0 D AST 14 ALT 16 Alkaline Phosphatase 81 Total Protein 6.0 Albumin 3.9 Globulin 2.1 L Albumin/Globulin Ratio 1.9 ABG Interpretation ABG results: 01/01/25 01:34 VBG pH 7.36 VBG pCO2 45 VBG pO2 41 VBG Base Excess -1 Quality Measures Quality Measures none Assessment & Plan Assessment Current Active Medications: Generic Name Dose Route Start Last Admin Trade Name Freq PRN Reason Stop Dose Admin Acetaminophen 650 mg 01/01/25 04:40 Acetaminophen 325 Mg Tablet PO 01/31/25 04:39 Q6H PRN Fever >99.5 Acetaminophen 1,000 mg 01/01/25 15:55 Acetaminophen 500 Mg Tablet PO 01/31/25 04:39 Q6H PRN PAIN SCALE 1-3 (mild Morphine Sulfate 2 mg 01/01/25 15:54 Morphine Sulf Inj 10 Mg/Ml Vial IVP 01/06/25 04:39 Q4HR PRN PAIN SCALE 4-10(Mod-Sev Ondansetron HCl 4 mg 01/01/25 04:40 01/01/25 11:45 Ondansetron Inj 2 Mg/Ml Inj 2 Ml IVP 01/31/25 04:39 4 mg Q6H PRN Administration NAUSEA OR VOMITING Protocol Pantoprazole Sodium 40 mg 01/01/25 09:00 01/02/25 08:57 Pantoprazole Inj 40 Mg Vial IVP 01/31/25 08:59 40 mg QDAY MILES Administration
--- NOTE | 2025-01-02 15:20 | ESDS_ITS ---
<Statement entered by Flower Sam DO - 01/03/25 17:07> I, Flower Sam DO, attest that I was physically present for the ahumada portions of the service and evaluated the patient with the resident and I reviewed and discussed the case with the resident and agree with the resident's findings and plans of care as documented above Planned Discharge Date 01/02/25 DS: Providers Provider Date of admission: 01/01/25 04:40 Primary care physician: Physician No Primary/Family Admitting Provider: Anton Barbour MD Attending Provider on Admission: Flower Sam DO Attending Provider on DC: Macho Savage MD Discharging Provider: Macho Savage MD DS: Diagnosis Problem List Completed Was Problem List Reviewed/Reconciled?: Yes Hospital Course Hospital Course Hospital course: Mr. Saul cardoso 24-year-old male with no significant medical history was brought to [facility] ED (on 01/01/25) for altered mental status, nausea, vomiting and abdominal pain. Symptoms started after patient had episode of binge drinking. Head, chest, abdomen and pelvis CT were negative. Labs indicated elevated amylase and lipase. Patient was admitted for alcohol intoxication and acute pancreatitis. Patient received IV fluid while in hospital, tolerated food and had bowl movement. Patient counselled at length regarding cessation of alcohol use and maintaining low fat diet. Abdominal pain has since resolved. Patient is stable for discharge home and to f/u outpatient with PCP within 1 week of discahrge. Macho Savage PGY2, Time Spent with Patient Time attestation: Total time spent providing and/or coordinating discharge services: Time spent: Greater than 30 minutes Exam Vital Signs Temp Pulse Resp BP Pulse Ox O2 Del Method 97.3 F 70 20 118/67 98 Room Air 01/02/25 12:00 01/02/25 12:00 01/02/25 12:00 01/02/25 12:00 01/02/25 12:01/02/25 12:00 Narrative Exam General: Awake. HEENT: Normocephalic, atraumatic, mucous membranes moist. Heart: Regular rate and rhythm, no murmurs. Lungs: Clear to auscultation with no wheezing or crackles. Abdomen: Soft, nondistended, nontender, positive bowel sounds. ?No guarding or rebound tenderness. Neurologic: Alert and oriented x3, no gross neurological deficit, and patient able to move all 4 extremities. Extremities: No edema. Skin: No rash or ecchymoses. Discharge Plan Plan Patient Disposition: HOME (Self Care) Patient condition on transfer: Stable Prescriptions/Referrals Prescriptions/Med Rec: Continued naproxen [Naprosyn] 500 mg tablet 500 mg PO BID PRN (Reason: pain) Qty: 30 0RF Discontinued tramadol 50 mg tablet 50 mg PO BID PRN (Reason: pain) Qty: 14 0RF Referrals: No Primary/Family,Physician [Primary Care Provider] - Patient/Caregiver Discharge Instructions Other Discharge Activity Instructions:: Please f/u with PCP within 1 week of discharge. Please avoid fatty foods and alcohol. Take tylenol over the counter for pain as needed. Other Discharge Diet Instructions: [place] Education Materials: Pancreatitis Acute Dc, ED [place] Diet (Child) Print Language: Algerian Stand Alone Forms: Lora Award Info., Patient Portal Info Letter Discharge Order Discharge Orders: Discharge (Routine); Ordered 01/02/25 Ordered By: Flower Sam Quality Discharge Quality Measures none
== END 2025-01-02 14:25 | disposition home or self-care (01) | DRG 440 ==
LOC: SERX 03:39 → SERHOLD 05:11 → S3SX 08:16
PROVIDERS: Student in an Organized Health Care Education/Training Program; Admitting Provider Student in an Organized Health Care Education/Training Program; Emergency Provider Emergency Medicine; Visit Provider Internal Medicine
DX: K85.20 Alcohol induced acute pancreatitis without necrosis or infection (principal); F10.129 Alcohol abuse with intoxication, unspecified; Y90.8 Blood alcohol level of 240 mg/100 ml or more
CPT/HCPCS: 36415; 70450; 71250; 72125; 74176; 80053; 80061; 80307; 80320; 80329; 81001; 82140; 82150; 82248; 82550; 82803; 83690; 83735; 84100; 85025; 93225; 96361; 96374; 96375; 99285; J2060; J2405; J2470; J7030; J7120; A9270; G0480